=== PATIENT | female | born 1985 | race Caucasian/White ===

== ENCOUNTER 2022-01-10 21:15 | Outpatient (CLI) | payer OTHER, SELFPAY | END 2022-01-10 21:16 | disposition home or self-care (01) | LOC: AMB 01-18 14:45 | PROVIDERS: Visit Provider Family Medicine | DX: S19.9XXA Unspecified injury of neck, initial encounter (principal); Y04.8XXA Assault by other bodily force, initial encounter; Y92.008 Other place in unspecified non-institutional (private) residence as the place of occurrence of the external cause | CPT/HCPCS: A0998 ==